=== PATIENT | female | born 1980 | race African-American/Black ===

== ENCOUNTER 2017-10-03 16:07 | Emergency (ER) | END 2017-10-03 19:37 | disposition home or self-care (01) ==

== ENCOUNTER 2017-10-09 21:24 | Emergency (ER) | END 2017-10-10 02:15 | disposition left against medical advice (07) ==

== ENCOUNTER 2017-10-12 13:59 | Emergency (ER) | END 2017-10-12 15:56 | disposition home or self-care (01) ==

== ENCOUNTER 2017-11-26 21:25 | Emergency (ER) | END 2017-11-27 00:30 | disposition home or self-care (01) ==

== ENCOUNTER 2017-11-28 12:15 | Emergency (ER) | END 2017-11-28 16:31 | disposition home or self-care (01) ==